=== PATIENT | female | born 1995 | race Two or more races ===

== ENCOUNTER 2023-01-24 00:48 | Emergency (ER) | payer MEDICAID, OTHER ==
[~2023-01-24] VITALS: Ht 160 cm; Wt 117.7 kg
[2023-01-24] MEDS ORDERED: DICYCLOMINE HCL (10MG/ML) 2 ML AMPULE IM ONE (02:00)
[2023-01-24 02:22] LABS: Basophils # (auto) 0.1 10 ^3/uL (0-0.2); Basophils % (auto) 0.9 % (0.0-2.0); Eosinophils # (auto) 0.3 10 ^3/uL (0-0.8); Eosinophils % (auto) 2.6 % (0.0-7.0); Hemoglobin 13.7 g/dL (12.2-16.2); Lymphocytes # (auto) 2.6 10 ^3/uL (0.4-5.4); Lymphocytes % (auto) 20.5 % (10.0-50.0); Mean Corpuscular Hgb Conc. 33.3 g/dL (32.0-36.0); Mean Corpuscular Volume 84.1 fL (80.0-100.0); Monocytes # (auto) 0.6 10 ^3/uL (0-1.3); Monocytes % (auto) 4.7 % (0.0-12.0); Neutrophils # (auto) 9.1 10 ^3/uL (1.6-8.6); Neutrophils % (auto) 71.3 % (37.0-80.0); Nucleated Red Blood Cells % 0.1 %; Red Blood Cells 4.87 10^6/uL (4.0-5.20); Red Cell Distribution Width 13.7 % (11.8-14.3); White Blood Cell 12.7 10^3/uL (4.4-10.8)
[2023-01-24 02:38] LABS: Urine Bacteria NONE SEEN /hpf (None Seen); Urine Blood 3+ /uL (Negative); Urine Clarity Clear (Clear); Urine Color PINK (Yellow); Urine Protein, UAD 1+ (Negative); Urine Specific Gravity 1.025 (1.001-1.035); Urine Urobilinogen Normal (Negative); Urine WBC 22 /hpf (0 - 5); Urine pH 5.5 (5.0-8.0)
[2023-01-24 02:39] LABS: Alanine Aminotransferase 21 U/L (7-40); Albumin 4.5 g/dL (3.2-4.8); Alkaline Phosphatase 151 U/L (46-116); Anion Gap 8 (5-15); Aspartate Aminotransferase 23 U/L (13-40); Bilirubin, Total 0.8 mg/dL (0.2-1.0); Blood Urea Nitrogen 9 mg/dL (9-23); Calcium 9.2 mg/dL (8.7-10.4); Carbon Dioxide 24 mmol/L (20-30); Chloride 106 mmol/L (98-107); Glucose 115 mg/dL (74-106); Lipase 51 U/L (12-53); Magnesium 1.9 mg/dL (1.6-2.6); Potassium 4.1 mmol/L (3.5-5.1); Sodium 138 mmol/L (136-145)
[2023-01-24 02:40] LABS: Total Protein 7.8 g/dL (5.7-8.2)
[2023-01-24 06:02] VITALS: TEMP 97.8
[2023-01-24] MEDS ORDERED: FAMO20TA10 PO (08:31)
[2023-01-24] MEDS ORDERED: MELO-335 PO (08:31)
[2023-01-24] MEDS ORDERED: ZOFR4T PO (08:31)
[2023-01-24 08:32] VITALS: BP 138/76; PULSE 69; RESP 17; O2SAT 96
== END 2023-01-24 08:38 | disposition home or self-care (01) ==
LOC: ER 00:48
DX: K80.50 Calculus of bile duct without cholangitis or cholecystitis without obstruction (principal); R10.2 Pelvic and perineal pain; Z79.899 Other long term (current) drug therapy
CPT/HCPCS: 36415; 76705; 80053; 81001; 81025; 83690; 83735; 84702; 85025; 96372; 99285; J0500

== ENCOUNTER 2023-07-18 20:36 | Inpatient (IN) | payer MEDICAID ==
[~2023-07-18] VITALS: Ht 160 cm; Wt 116.0 kg
[~2023-07-18 20:36] MED LIST: FAMO20TA10 PO; MELO15TA29 PO; ZOFR4T PO
[2023-07-18 22:02] LABS: Urine Bacteria None Seen /hpf (None Seen)
[2023-07-18 22:26] LABS: Urine Blood 1+ /uL (Negative); Urine Clarity Clear (Clear); Urine Color Yellow (Yellow); Urine Mucus FEW (None Seen); Urine Protein, UAD TRACE (Negative); Urine Specific Gravity 1.033 (1.001-1.035); Urine Urobilinogen 12 mg/dL (Negative); Urine WBC 2 /hpf (0 - 5)
[2023-07-18 22:55] LABS: Basophils # (auto) 0.1 10 ^3/uL (0-0.2); Basophils % (auto) 0.6 % (0.0-2.0); Eosinophils # (auto) 0.2 10 ^3/uL (0-0.8); Eosinophils % (auto) 1.6 % (0.0-7.0); Hematocrit 40.6 % (36.0-46.0); Hemoglobin 12.8 g/dL (12.2-16.2); Lymphocytes # (auto) 1.8 10 ^3/uL (0.4-5.4); Lymphocytes % (auto) 16.4 % (10.0-50.0); Mean Corpuscular Hemoglobin 25.9 pg (28.0-32.0); Mean Corpuscular Hgb Conc. 31.5 g/dL (32.0-36.0); Mean Corpuscular Volume 82.1 fL (80.0-100.0); Monocytes # (auto) 0.6 10 ^3/uL (0-1.3); Monocytes % (auto) 5.7 % (0.0-12.0); Neutrophils # (auto) 8.5 10 ^3/uL (1.6-8.6); Neutrophils % (auto) 75.7 % (37.0-80.0); Nucleated Red Blood Cells % 0.1 %; Red Blood Cells 4.94 10^6/uL (4.0-5.20); Red Cell Distribution Width 15.6 % (11.8-14.3); White Blood Cell 11.2 10^3/uL (4.4-10.8)
[2023-07-18 23:15] LABS: Alanine Aminotransferase 110 U/L (7-40); Albumin 4.7 g/dL (3.2-4.8); Alkaline Phosphatase 193 U/L (46-116); Anion Gap 5 (5-15); Aspartate Aminotransferase 227 U/L (13-40); BUN/Creatinine Ratio 13.4 (10.0-20.0); Bilirubin, Total 2.1 mg/dL (0.2-1.0); Blood Urea Nitrogen 9 mg/dL (9-23); Carbon Dioxide 27 mmol/L (20-30); Chloride 105 mmol/L (98-107); Glucose 110 mg/dL (74-106); Lipase 41 U/L (12-53); Potassium 3.6 mmol/L (3.5-5.1); Sodium 137 mmol/L (136-145); Total Protein 8.1 g/dL (5.7-8.2)
[2023-07-19] VITALS (7 sets, daily range): BP systolic 125–131; BP diastolic 77–85; PULSE 66–77; RESP 12–18; TEMP 96.9–98.1; O2SAT 95–100
[2023-07-19] MEDS ORDERED: ONDANSETRON HCL 4 MG/2 ML VIAL IV PRN (03:15)
[2023-07-19] MEDS ORDERED: MORPHINE SULFATE INJ 2 MG/ml SYRG IV PRN (03:15)
[2023-07-19] MEDS: SODIUM CHLORIDE 0.9% 1,000 ML IV SCH (03:26)
[2023-07-19 04:02] LABS: Alanine Aminotransferase 148 U/L (7-40); Albumin 4.5 g/dL (3.2-4.8); Alkaline Phosphatase 197 U/L (46-116); Anion Gap 4 (5-15); Aspartate Aminotransferase 295 U/L (13-40); BUN/Creatinine Ratio 11.7 (10.0-20.0); Blood Urea Nitrogen 7 mg/dL (9-23); Calcium 9.8 mg/dL (8.7-10.4); Carbon Dioxide 26 mmol/L (20-30); Chloride 106 mmol/L (98-107); Glucose 105 mg/dL (74-106); Potassium 3.8 mmol/L (3.5-5.1); Sodium 136 mmol/L (136-145)
[2023-07-19 04:03] LABS: Bilirubin, Total 2.5 mg/dL (0.2-1.0); Total Protein 7.9 g/dL (5.7-8.2)
[2023-07-19 04:09] LABS: Partial Thromboplastin Time 31.6 SEC (24.5-34.5); Prothrombin Time 10.5 sec (9.3-11.8)
[2023-07-19] MEDS ORDERED: GEMF600T PO (10:24)
[2023-07-19] MEDS: D5W/SOD CHLO 0.9% 1,000 ML IV SCH (15:20)
[2023-07-19] MEDS ORDERED: metroNIDAZOLE 500MG/100ML 100 ML IV SCH (22:00)
[2023-07-19] MEDS: metroNIDAZOLE 500MG/100ML 100 ML IV SCH (22:46)
[2023-07-20 01:00] VITALS: BP 127/77; PULSE 71; RESP 18; TEMP 98; O2SAT 94
[2023-07-20 05:00] VITALS: BP 103/60; PULSE 67; RESP 18; TEMP 97.8; O2SAT 98
[2023-07-20 06:39] LABS: Eosinophils # (auto) 0.3 10 ^3/uL (0-0.8); Hemoglobin 12.1 g/dL (12.2-16.2); Neutrophils # (auto) 4.5 10 ^3/uL (1.6-8.6); White Blood Cell 7.2 10^3/uL (4.4-10.8)
[2023-07-20 06:42] LABS: Basophils # (auto) 0.1 10 ^3/uL (0-0.2); Basophils % (auto) 0.7 % (0.0-2.0); Eosinophils % (auto) 3.5 % (0.0-7.0); Hematocrit 36.8 % (36.0-46.0); Lymphocytes % (auto) 27.5 % (10.0-50.0); Mean Corpuscular Volume 81.9 fL (80.0-100.0); Monocytes # (auto) 0.5 10 ^3/uL (0-1.3); Monocytes % (auto) 6.3 % (0.0-12.0); Red Cell Distribution Width 15.9 % (11.8-14.3)
[2023-07-20 08:22] LABS: Chloride 109 mmol/L (98-107)
[2023-07-20 08:25] VITALS: BP 138/97; PULSE 79; RESP 17; TEMP 97.9; O2SAT 99
[2023-07-20 08:25] LABS: Calcium 8.8 mg/dL (8.5-10.1); Carbon Dioxide 27 mmol/L (20-30)
[2023-07-20 08:30] LABS: Alkaline Phosphatase 160 U/L (46-116); Glucose 91 mg/dL (74-106)
[2023-07-20 08:32] LABS: Alanine Aminotransferase 151 U/L (7-40); Albumin 4.2 g/dL (3.2-4.8); Aspartate Aminotransferase 158 U/L (13-40); BUN/Creatinine Ratio 8.1 (10.0-20.0); Bilirubin, Total 0.8 mg/dL (0.2-1.0); Blood Urea Nitrogen 5 mg/dL (9-23); Potassium 3.5 mmol/L (3.5-5.1); Total Protein 6.7 g/dL (5.7-8.2)
[2023-07-20 08:34] LABS: Anion Gap 5 (5-15); Sodium 141 mmol/L (136-145)
[2023-07-20 08:44] LABS: Lipase 35 U/L (12-53)
[2023-07-20] MEDS: ACETAMINOPHEN 325 MG TAB PO PRN (11:14)
[2023-07-20] MEDS: D5W/ SOD CHL 0.9%/KCL 20MEQ 1,000 ML IV SCH (11:18)
[2023-07-20 12:25] VITALS: BP 147/97; PULSE 74; RESP 17; TEMP 97.7; O2SAT 99
[2023-07-20 16:20] VITALS: BP 125/86; PULSE 68; RESP 17; TEMP 97.4; O2SAT 99
[2023-07-20 21:00] VITALS: BP 106/66; PULSE 61; RESP 18; TEMP 97.6; O2SAT 96
[2023-07-21 01:00] VITALS: BP 146/91; PULSE 76; RESP 18; TEMP 98; O2SAT 98
[2023-07-21] MEDS ORDERED: IBUP1TAB5 PO (04:25)
[2023-07-21 05:00] VITALS: BP 105/64; PULSE 63; RESP 18; TEMP 98.1; O2SAT 94
[2023-07-21 06:55] LABS: Basophils # (auto) 0 10 ^3/uL (0-0.2); Basophils % (auto) 0.4 % (0.0-2.0); Eosinophils # (auto) 0.4 10 ^3/uL (0-0.8); Eosinophils % (auto) 4.6 % (0.0-7.0); Hematocrit 39.5 % (36.0-46.0); Hemoglobin 12.5 g/dL (12.2-16.2); Lymphocytes # (auto) 1.9 10 ^3/uL (0.4-5.4); Lymphocytes % (auto) 22.8 % (10.0-50.0); Mean Corpuscular Hemoglobin 27.1 pg (28.0-32.0); Mean Corpuscular Hgb Conc. 31.6 g/dL (32.0-36.0); Mean Corpuscular Volume 85.8 fL (80.0-100.0); Monocytes # (auto) 0.6 10 ^3/uL (0-1.3); Neutrophils # (auto) 5.5 10 ^3/uL (1.6-8.6); Neutrophils % (auto) 65.2 % (37.0-80.0); Nucleated Red Blood Cells % 0.1 %; White Blood Cell 8.4 10^3/uL (4.4-10.8)
[2023-07-21 07:16] LABS: Alanine Aminotransferase 123 U/L (7-40); Albumin 3.7 g/dL (3.2-4.8); Alkaline Phosphatase 136 U/L (46-116); Anion Gap 5 (5-15); Aspartate Aminotransferase 101 U/L (13-40); Calcium 8.8 mg/dL (8.5-10.1); Carbon Dioxide 24 mmol/L (20-30); Chloride 109 mmol/L (98-107); Glucose 94 mg/dL (74-106); Potassium 3.9 mmol/L (3.5-5.1); Sodium 138 mmol/L (136-145)
[2023-07-21 07:17] LABS: Bilirubin, Total 0.7 mg/dL (0.2-1.0); Total Protein 6.1 g/dL (5.7-8.2)
[2023-07-21 07:27] LABS: BUN/Creatinine Ratio 9.3 (10.0-20.0); Blood Urea Nitrogen < 5 mg/dL (9-23)
[2023-07-21 08:30] VITALS: BP 131/85; PULSE 71; RESP 14; RESP 16; TEMP 97.8; O2SAT 97
[2023-07-21 12:00] VITALS: BP 130/90; PULSE 78; RESP 18; TEMP 97.9; O2SAT 98
== END 2023-07-21 12:30 | disposition home or self-care (01) ==
LOC: ER 20:36 → OVERFLOW 07-19 03:09 → EAST 07-19 09:30
PROVIDERS: ADMIT Nurse Practitioner; ATTEND Nurse Practitioner Acute Care
DX: K80.70 Calculus of gallbladder and bile duct without cholecystitis without obstruction (principal); D72.829 Elevated white blood cell count, unspecified; E66.01 Morbid (severe) obesity due to excess calories; E78.5 Hyperlipidemia, unspecified; R74.01 Elevation of levels of liver transaminase levels; R79.89 Other specified abnormal findings of blood chemistry; Z68.42 Body mass index [BMI] 45.0-49.9, adult; Z82.49 Family history of ischemic heart disease and other diseases of the circulatory system; Z83.3 Family history of diabetes mellitus
CPT/HCPCS: 36415; 74181; 76705; 80053; 81001; 83605; 83690; 84702; 85025; 85610; 85730; 96360; G0378; J3490

== ENCOUNTER 2024-12-02 19:32 | Inpatient (IN) | payer MEDICAID ==
[~2024-12-02] VITALS: Ht 160 cm; Wt 109.6 kg
[~2024-12-02 19:32] MED LIST changes: +GEMF600T PO; +IBUP1TAB5 PO
[2024-12-02 19:34] VITALS: BP 134/92; PULSE 82; RESP 19; TEMP 97.7; O2SAT 99
--- NOTE | 2024-12-02 19:50 | ED.PDOC ---
GI ASSESSMENT HPI Comments 29-year-old female who came to ER for abdominal pain. Patient diagnosed with gallstones, but yet has to see a surgeon regarding the seizure. For the past few hours patient has been having right upper quadrant abdominal pain, radiating to her back. Denies any nausea or vomiting. Denies any possibility of . Chief Complaint: Abdominal Pain Time Seen by MD: 19:49 Reviewed Notes: Nurses Notes Allergies: Coded Allergies: NO KNOWN ALLERGIES (Unverified , 07/18/23) Home Meds Active Scripts Meloxicam (Meloxicam) 15 Mg Tab, 1 TAB PO DAILY PRN, #10 TAB Prov:FAREED CORDERO MD 01/24/23 Famotidine (PEPCID TABLET) 20 Mg Tb, 1 TAB PO BID, #28 TAB 3 Refills Prov:FAREED CORDERO MD 01/24/23 Ondansetron Odt 4MG Tab (ZOFRAN PO) 4 Mg Tb, 4 MG PO Q4HP PRN, #20 TAB ODT TAB-DISSOLVE IN MOUTH, THEN SWALLOW Prov:FAREED CORDERO MD 01/24/23 Reported Medications Ibuprofen Micronized (Ibuprofen) 600 Mg Tab, 1 TAB PO Q6HPRN PRN for PAIN SCALE 1 THRU 6 07/21/23 Gemfibrozil (Lopid) 600 Mg Tab, 1 TAB PO BID, #60 TAB 5 Refills 07/19/23 Information Source: Patient Mode of Arrival: Ambulatory Timing: Hours Duration: Intermittent Prehospital treatment: None Quality: Aching Vomitus: Watery Stool: Normal Severity: Moderate Recent: Possible spoiled food Recent Hx of: None Pain Location: RUQ Modifying Factors: Nothing Associated sign and symptoms: Abdominal Pain Past Medical History PAST MEDICAL HISTORY: Gallstones Surgical History: Denies all surgeries OFFICE SERVICES REPRESENTATIVE History: Denies all OFFICE SERVICES REPRESENTATIVE Hx Family History Family History: Reviewed,noncontributory to illness Social History Smoker: Non-Smoker Alcohol: Denies ETOH Use Drugs: Denies Drug Use Lives In: Home Constitutional: denies: chills, diaphoresis, fatigue, fever, malaise, sweats, weakness, others EENTM: denies: blurred vision, double vision, ear bleeding, ear discharge, ear drainage, ear pain, ear ringing, eye pain, eye redness, hearing loss, mouth pain, mouth swelling, nasal discharge, nose bleeding, nose congestion, nose pain, photophobia, tearing, throat pain, throat swelling, voice changes, others Respiratory: denies: cough, hemoptysis, orthopnea, SOB at rest, shortness of breath, SOB with excertion, stridor, wheezing, others Cardiovascular: denies: chest pain, dizzy spells, diaphoresis, Dyspnea on exertion, edema, irregular heart beat, left arm pain, lightheadedness, palpitations, PND, syncope, others Gastrointestinal: reports: abdominal pain; denies: abdomen distended, blood streaked bowels, constipated, diarrhea, dysphagia, difficulty swallowing, hematemesis, melena, nausea, poor appetite, poor fluid intake, rectal bleeding, rectal pain, vomiting, others Genitourinary: denies: abnormal vagina bleeding, burning, dyspareunia, dysuria, flank pain, frequency, hematuria, incontinence, pain, , vagina discharge, urgency, others Neurological: denies: dizziness, fainting, headache, left sided numbness, left sided weakness, numbness, paresthesia, pre-existing deficit, right sided numbness, right sided weakness, seizure, speech problems, tingling, tremors, weakness, others Musculoskeletal: denies: back pain, gout, joint pain, joint swelling, muscle pain, muscle stiffness, neck pain, others Integumetry: denies: bruises, change in color, change in hair/nails, dryness, laceration, lesions, lumps, rash, wounds, others Allergic/Immunocompromised: denies: Difficulty Healing, Frequent Infections, Hives, Itching, others Hematologic/Lymphatic: denies: anemia, blood clots, easy bleeding, easy bruising, swollen glands, others Endocrine: denies: excessive hunger, excessive sweating, excessive thirst, excessive urination, flushing, intolerance to cold, intolerance to heat, unexplained weight gain, unexplained weight loss, others Psychiatric: denies: anxiety, bipolar disorder, depression, hopeless, panic disorder, schizophrenia, sleepless, suicidal, others Physical Exam General Appearance: No Apparent Distress, Normal HEENT: Normal ENT Inspection, Pharynx Normal, TMs Normal Neck: Full Range of Motion, Non-Tender, Normal, Normal Inspection Respiratory: Chest Non-Tender, Lungs Clear, No Accessory Muscle Use, No Respiratory Distress, Normal Breath Sounds Cardiovascular: No Edema, No JVD, No Murmur, No Gallop, Normal Peripheral Pulses, Regular Rate/Rhythm Breast Exam: Deferred Gastrointestinal: No Organomegaly, Non Tender, No Pulsatile Mass, Normal Bowel Sounds, Soft Genitalia: Deferred Pelvic: Deferred Rectal: Deferred Extremities: No calf tenderness, Normal capillary refill, Normal inspection, Normal range of motion, Non-tender, No pedal edema Musculoskeletal : Apperance: Normal Neurologic: Alert, icu registered nurse II-XII nml as Tested, No Motor Deficits, Normal Affect, Normal Mood, No Sensory Deficits Cerebellar Function: Normal Reflexes: Normal Skin: Dry, Normal Color, Warm Lymphatic: No Adenopathy Was a procedure done? Was a procedure done?: No GI differential Dx Differential Diagnosis: Cholecystitis, Constipation, Diverticular disease, Gastritis/PUD, Gastroenteritis, Pancreatitis, UTI X-Ray, Labs, Meds, VS Vital Signs Date Time Temp Pulse Resp B/P (MAP) Pulse Ox O2 Delivery O2 Flow Rate FiO2 12/02/24 19:34 97.7 82 19 134/92 99 97.7 Lab Test 12/02/24 21:30 12/02/24 20:37 12/02/24 19:56 Range/Units Urine Test Negative Negative White Blood Count 14.0 H 4.4-10.8 10^3/uL Red Blood Count 4.82 4.0-5.20 10^6/uL Hemoglobin 13.5 12.2-16.2 g/dL Hematocrit 40.4 36.0-46.0 % Mean Corpuscular Volume 83.8 80.0-100.0 fL Mean Corpuscular Hemoglobin 28.1 28.0-32.0 pg Mean Corpuscular Hemoglobin Concent 33.5 32.0-36.0 g/dL Red Cell Distribution Width 14.3 11.8-14.3 % Platelet Count 394 140-450 10^3/uL Mean Platelet Volume 8.9 6.9-10.8 fL Neutrophils (%) (Auto) 72.0 37.0-80.0 % Lymphocytes (%) (Auto) 19.7 10.0-50.0 % Monocytes (%) (Auto) 6.1 0.0-12.0 % Eosinophils (%) (Auto) 1.7 0.0-7.0 % Basophils (%) (Auto) 0.5 0.0-2.0 % Neutrophils # (Auto) 10.1 H 1.6-8.6 10 ^3/uL Lymphocytes # (Auto) 2.8 0.4-5.4 10 ^3/uL Monocytes # (Auto) 0.9 0-1.3 10 ^3/uL Eosinophils # (Auto) 0.2 0-0.8 10 ^3/uL Basophils # (Auto) 0.1 0-0.2 10 ^3/uL Nucleated Red Blood Cells 0.1 % Sodium Level 143 136-145 mmol/L Potassium Level 4.1 3.5-5.1 mmol/L Chloride Level 107 98-107 mmol/L Carbon Dioxide Level 25 20-31 mmol/L Anion Gap 11 5-15 Blood Urea Nitrogen 9 9-23 mg/dL Creatinine 0.70 0.550-1.02 mg/dL Glomerular Filtration Rate Calc 120 >90 mL/min BUN/Creatinine Ratio 12.9 10.0-20.0 Serum Glucose 93 74-106 mg/dL Calcium Level 9.3 8.7-10.4 mg/dL Total Bilirubin 0.8 0.2-1.0 mg/dL Aspartate Amino Transferase (AST) 16 13-40 U/L Alanine Aminotransferase (ALT) 13 7-40 U/L Alkaline Phosphatase 107 46-116 U/L Total Protein 7.5 5.7-8.2 g/dL Albumin 4.5 3.2-4.8 g/dL Lipase 33 12-53 U/L Time of 1ST Reevaluation: 19:47 Reevaluation 1ST: Unchanged Patient Education/Counseling: Diagnosis, Treatment, Prognosis, Need For Follow Up Family Education/Counseling: No Family Present Comments Patient does have cholelithiasis. Although there is no clear findings for cholecystitis, her wall is slightly thickened and she has leukocytosis of course which this could be due to acute pain and the margination. However to control her symptoms patient will be admitted to the hospital I will treat her empirically with antibiotic to cover for possible early cholecystitis. SEPSIS Sepsis Screen Date sepsis recognized/suspect: Dec 02, 2024 Time Sepsis recognized/suspect: 1933 Recent Procedure: No On Antibiotic Therapy: No Respiratory Rate >20: No Heart Rate >90: No Temp<36 C (96.8 F) or >38.3 C: No SBP <90 or MAP <65 mmHG: No New Acute Mental Status Change: No Is the patient on CPAP, BIPAP,: No Physician Orders Gallbladder (12/02/24 19:46) Vital Signs Date Time Temp Pulse Resp B/P (MAP) Pulse Ox O2 Delivery O2 Flow Rate FiO2 12/02/24 19:34 97.7 82 19 134/92 99 97.7 Laboratory Tests Test 12/02/24 20:37 White Blood Count 14.0 10^3/uL (4.4-10.8) H Departure 1 Departure Time of Disposition: 22:21 Impression: Primary Impression: Cholelithiasis Qualified Codes: K80.20 - Calculus of gallbladder without cholecystitis without obstruction Additional Impression: Biliary colic Disposition: ADMITTED INPATIENT Admit to: Med Surg Condition: Stable Discharged With: Self Critical Care Note Critical Care Time?: No Stability Stability form required: No Heart Score Heart Score: Heart Score Response (Comments) Value History N/A 0 EKG N/A 0 Age N/A 0 Risk Factors N/A 0 Troponin N/A 0 Total 0 I personally scribed for AFSHAN TORRES MD ([email or web address]) on 12/02/24 at 19:50. Electronically submitted by Wilfrido Joshi ([email or web address]). AFSHAN TORRES MD Dec 02, 2024 19:50
[2024-12-02 20:29] LABS: Alanine Aminotransferase 13 U/L (7-40); Albumin 4.5 g/dL (3.2-4.8); Alkaline Phosphatase 107 U/L (46-116); Anion Gap 11 (5-15); BUN/Creatinine Ratio 12.9 (10.0-20.0); Bilirubin, Total 0.8 mg/dL (0.2-1.0); Blood Urea Nitrogen 9 mg/dL (9-23); Calcium 9.3 mg/dL (8.7-10.4); Carbon Dioxide 25 mmol/L (20-31); Chloride 107 mmol/L (98-107); Glucose 93 mg/dL (74-106); Lipase 33 U/L (12-53); Potassium 4.1 mmol/L (3.5-5.1); Sodium 143 mmol/L (136-145); Total Protein 7.5 g/dL (5.7-8.2)
[2024-12-02 20:59] LABS: Hematocrit 40.4 % (36.0-46.0); Hemoglobin 13.5 g/dL (12.2-16.2); Mean Corpuscular Hemoglobin 28.1 pg (28.0-32.0); Mean Corpuscular Volume 83.8 fL (80.0-100.0); Nucleated Red Blood Cells % 0.1 %
--- NOTE | 2024-12-02 21:22 | DVH ---
INDICATION: ruq pain TECHNIQUE: Multiple real-time sonographic images of the abdomen were obtained. COMPARISON: US GALLBLADDER on DOS: 07/18/23, US ABDOMEN LIMITED on DOS: 01/24/23 FINDINGS: Hepatic parenchyma is echogenic suggesting steatosis The liver measures 17.2 cm. No intrah epatic biliary ductal dilatation is noted. The gallbladder wall measures 0.33 cm and is unremarkable. Cholelithiasis. There is sludge also see n in the gallbladder The common duct measures 0.36 cm and is unremarkable. No pericholecystic fluid is noted. Sonographic james's sign is negative The right kidney measures 9.6 cm. No hydronephrosis. The pancreas is not well visualized due to obscuration from bowel gas. The visualized portions of the IVC and aorta are grossly unremarkable. IMPRESSION: 1. Cholelithiasis and sludge noted in the gallbladder. Mildly thickened gallbladder wall. Negative so nographic james's sign. 2. Right kidney measures 9.6 cm in length and there is no hydronephrosis 3. Liver measures 17.2 with parenchymal changes consistent with steatosis.
[2024-12-02] MEDS: SODIUM CHLORIDE 0.9% 1,000 ML IV SCH (23:00)
[2024-12-02 23:01] LABS: Urine Protein, UAD TRACE (Negative)
--- NOTE | 2024-12-02 23:04 | DVHHP2 ---
History of Present Illness History of Present Illness The patient is 29-year-old female with past medical history of cholelithiasis with biliary colic, morbid obesity who came to the hospital with a chief complaint of worsening right upper quadrant abdominal pain, worsened with intake of food, onset few days ago, 09/19, radiating to back, nonresolution with nausea vomiting or diarrhea. Eating food usually worsening of the pain, last for few over, mainly colic in nature, not associated with chest pain, shortness of breath, motor weakness or sensory deficit . The patient denied any other symptoms. As per patient she was hospitalized for same I year ago, was advised for possible surgery, however patient did not appropriately follow up in outpatient setting for surgery, was asymptomatic however started having symptoms past few days prompted visit to the hospital. . Past medical history: Cholelithiasis, biliary colic, morbid obesity Home medication: Zepbound 7.5 mg once weekly injection. Surgery: None Allergy: None Personal history: None PCP: Aurelio Huggins Review of Systems Constitutional: No: Fever, Chills, Sweats, Weakness, Malaise, Other Eyes: No: Pain, Vision change, Conjunctivae inflammation, Eyelid inflammation, Other, Redness ENT: No: Ear pain, Ear discharge, Nose pain, Nose discharge, Nose congestion, Mouth pain, Mouth swelling, Throat pain, Throat swelling, Other Cardiovascular: No: Chest Pain, Palpitations, Orthopnea, Paroxysmal Noc. Dyspnea, Edema, Lt Headedness, Other Gastrointestinal: Abdominal Pain Genitourinary: No Dysuria, No Frequency, No Incontinence, No Hematuria, No Retention, No Other Musculoskeletal: No: other, neck pain, shoulder pain, arm pain, back pain, hand pain, leg pain, foot pain Skin: No: Rash, Lesions, Jaundice, Bruising, Other Neurological: No: Weakness, Numbness, Incoordination, Change in speech, Confusion, Seizures, Other Allergies: Coded Allergies: NO KNOWN ALLERGIES (Unverified , 07/18/23) Medications Current Medications Medications Dose Ordered Sig/Dez Route Start Time Stop Time Status Last Admin Dose Admin Metronidazole 100 ml @ 100 mls/hr Q8HR IV 12/03/24 06:00 Ceftriaxone Sodium 50 ml @ 100 mls/hr DAILY@09 IV 12/03/24 09:00 UNV Pantoprazole Sodium 40 mg DAILY IV 12/03/24 10:00 Sodium Chloride 1,000 ml @ 100 mls/hr Q10H IV 12/02/24 23:00 Exam Vital Signs Vital Signs Date Time Temp Pulse Resp B/P (MAP) Pulse Ox O2 Delivery O2 Flow Rate FiO2 12/02/24 19:34 97.7 82 19 134/92 99 97.7 General Appearance: Alert, Oriented X3, Cooperative, No acute distress HEENT: Atraumatic, PERRLA, EOMI, Mucous membr. moist/pink Respiratory: Clear to auscultation, Normal air movement Cardiovascular: Regular rate, Normal S1, Normal S2 Abdominal: Normal bowel sounds, Soft, Other (Right upper quadrant tenderness on deep palpation, no rigidity, no guarding.) Extremities: No clubbing, No cyanosis, No edema Skin: No breakdown, No significant lesion Neuro: Normal speech, Strength at 5/5 X4 ext, Normal tone, Sensation intact, Cranial nerves 3-12 NL Psych/Mental Status: Mental status NL, Mood NL Labs/Xrays Labs Test 12/02/24 21:30 12/02/24 20:37 12/02/24 19:56 Range/Units Urine Test Negative Negative White Blood Count 14.0 H 4.4-10.8 10^3/uL Red Blood Count 4.82 4.0-5.20 10^6/uL Hemoglobin 13.5 12.2-16.2 g/dL Hematocrit 40.4 36.0-46.0 % Mean Corpuscular Volume 83.8 80.0-100.0 fL Mean Corpuscular Hemoglobin 28.1 28.0-32.0 pg Mean Corpuscular Hemoglobin Concent 33.5 32.0-36.0 g/dL Red Cell Distribution Width 14.3 11.8-14.3 % Platelet Count 394 140-450 10^3/uL Mean Platelet Volume 8.9 6.9-10.8 fL Neutrophils (%) (Auto) 72.0 37.0-80.0 % Lymphocytes (%) (Auto) 19.7 10.0-50.0 % Monocytes (%) (Auto) 6.1 0.0-12.0 % Eosinophils (%) (Auto) 1.7 0.0-7.0 % Basophils (%) (Auto) 0.5 0.0-2.0 % Neutrophils # (Auto) 10.1 H 1.6-8.6 10 ^3/uL Lymphocytes # (Auto) 2.8 0.4-5.4 10 ^3/uL Monocytes # (Auto) 0.9 0-1.3 10 ^3/uL Eosinophils # (Auto) 0.2 0-0.8 10 ^3/uL Basophils # (Auto) 0.1 0-0.2 10 ^3/uL Nucleated Red Blood Cells 0.1 % Sodium Level 143 136-145 mmol/L Potassium Level 4.1 3.5-5.1 mmol/L Chloride Level 107 98-107 mmol/L Carbon Dioxide Level 25 20-31 mmol/L Anion Gap 11 5-15 Blood Urea Nitrogen 9 9-23 mg/dL Creatinine 0.70 0.550-1.02 mg/dL Glomerular Filtration Rate Calc 120 >90 mL/min BUN/Creatinine Ratio 12.9 10.0-20.0 Serum Glucose 93 74-106 mg/dL Calcium Level 9.3 8.7-10.4 mg/dL Total Bilirubin 0.8 0.2-1.0 mg/dL Aspartate Amino Transferase (AST) 16 13-40 U/L Alanine Aminotransferase (ALT) 13 7-40 U/L Alkaline Phosphatase 107 46-116 U/L Total Protein 7.5 5.7-8.2 g/dL Albumin 4.5 3.2-4.8 g/dL Lipase 33 12-53 U/L SEPSIS Sepsis Screen Date sepsis recognized/suspect: Dec 02, 2024 Time Sepsis recognized/suspect: 1933 Recent Procedure: No On Antibiotic Therapy: No Respiratory Rate >20: No Heart Rate >90: No Temp<36 C (96.8 F) or >38.3 C: No SBP <90 or MAP <65 mmHG: No New Acute Mental Status Change: No Is the patient on CPAP, BIPAP,: No Physician Orders Gallbladder (12/02/24 19:46) Sodium Chloride 0.9% (12/02/24 22:30) Admit (12/02/24 22:40) Chest Xray 1 View (12/02/24 22:40) Electrocardigram (12/02/24 22:40) PTPTT (12/02/24 22:40) Urinalysis (12/02/24 22:40) Npo (Nothing By Mouth) Diet (12/03/24 Breakfast) Nm Hida Scan (12/02/24 22:40) * Surgical Consult (12/02/24 ) Metronidazole 500mg/100ml (Flagyl 500mg/ (12/03/24 06:00) Metronidazole 500mg/100ml (Flagyl 500mg/ (12/02/24 22:45) Ceftriaxone 1gm/50ml D5w (Rocephin) (12/03/24 09:00) Pantoprazole (Protonix) (12/03/24 10:00) Sodium Chloride 0.9% (12/02/24 23:00) Lactic Acid W/ Reflex Order (12/02/24 22:53) Complete Blood Count (12/03/24 04:00) Basic Metabolic Panel (12/03/24 04:00) Vital Signs Date Time Temp Pulse Resp B/P (MAP) Pulse Ox O2 Delivery O2 Flow Rate FiO2 12/02/24 19:34 97.7 82 19 134/92 99 97.7 Laboratory Tests Test 12/02/24 20:37 White Blood Count 14.0 10^3/uL (4.4-10.8) H Assessment/Plan Assessment/Plan Symptomatic Cholelithiasis with biliary colic Rule out cholecystitis Sepsis likely due to acute cholecystitis Hepatic steatosis Morbid obesity BMI 42.8 kg/m2 Plan/recommendation -Gallbladder ultrasound on 12/02/2024: Cholelithiasis and sludge noted in the gallbladder. Mildly thickened gallbladder wall -NPO -surgery consultation for symptomatic cholelithiasis, possible acute cholecystitis -pending HIDA scan -IV antibiotic with ceftriaxone metronidazole -check lactic acidosis -maintenance IV fluid with NS 125 mL/hour -the patient is ambulatory -p.r.n. ondansetron for nausea and vomiting if needed Goals of care discussed greater than 24 m, full cor status Plan discussed with Dr. Gutierrez Plan discussed with: Patient, Other My Orders Orders - SAYRA YUN RESIDENT Procedure Category Date Status Time Admit ADMIT 12/02/24 Transmitted 22:40 Chest Xray 1 View XY 12/02/24 Logged 22:40 Electrocardigram EKG 12/02/24 Logged 22:40 PTPTT LAB 12/02/24 In Process 22:40 Urinalysis LAB 12/02/24 Logged 22:40 Npo (Nothing By DIET 12/03/24 Transmitted Mouth) Diet Breakfast Nm Hida Scan NM 12/02/24 Logged 22:40 * Surgical Consult CONS 12/02/24 Transmitted Metronidazole PHA 12/03/24 In Process 500mg/100ml (Flagyl 06:00 Metronidazole PHA 12/02/24 In Process 500mg/100ml (Flagyl 22:45 Ceftriaxone 1gm/50ml PHA 12/03/24 Pending D5w (Rocephin) 09:00 Pantoprazole PHA 12/03/24 In Process (Protonix) 10:00 Sodium Chloride 0.9% PHA 12/02/24 In Process 23:00 Lactic Acid W/ Reflex LAB 12/02/24 Logged Order 22:53 Complete Blood Count LAB 12/03/24 Verified 04:00 Basic Metabolic Panel LAB 12/03/24 Verified 04:00 Date of Service: Dec 02, 2024 Billing Provider: CARIN GUTIERREZ MD Common Visit Codes: [id number] INP/OBS CARE (HIGH) SAYRA YUN RESIDENT Dec 02, 2024 23:04
[2024-12-02 23:11] LABS: INR 0.97 (0.9-1.15); Partial Thromboplastin Time 35.0 SEC (24.5-34.5); Prothrombin Time 10.3 sec (9.3-11.8)
[2024-12-03] MEDS: SODIUM CHLORIDE 0.9% 1,000 ML IV ONE (00:20)
[2024-12-03] MEDS: cefTRIAXone SOD 1,000 MG VL IV ONE (00:26)
--- NOTE | 2024-12-03 00:45 | DVH ---
CHEST RADIOGRAPH Indication: preop Technique: 1 view Comparison: None FINDINGS: Lines and Tubes: None Lungs: No focal consolidation. Pleura: No effusion or pneumothorax. Cardiomediastinal contours: Unremarkable. Other: No acute osseous abnormality. IMPRESSION: 1. No acute cardiopulmonary abnormality.
[2024-12-03] MEDS: fentaNYL CITRATE 100 MCG/2 ML VL IV ONE (03:37)
[2024-12-03 03:57] LABS: Hematocrit 41.3 % (36.0-46.0); Hemoglobin 13.8 g/dL (12.2-16.2); Mean Corpuscular Hemoglobin 28.2 pg (28.0-32.0); Mean Corpuscular Volume 84.6 fL (80.0-100.0); Nucleated Red Blood Cells % 0.1 %
[2024-12-03 04:03] LABS: Potassium 3.8 mmol/L (3.5-5.1); Sodium 141 mmol/L (136-145)
[2024-12-03 04:04] LABS: Anion Gap 10 (5-15); Calcium 8.9 mg/dL (8.7-10.4); Carbon Dioxide 23 mmol/L (20-31)
[2024-12-03 04:05] LABS: Chloride 108 mmol/L (98-107)
[2024-12-03 04:09] LABS: BUN/Creatinine Ratio 10.3 (10.0-20.0); Blood Urea Nitrogen 6 mg/dL (9-23); Glucose 90 mg/dL (74-106)
[2024-12-03] MEDS ORDERED: cefTRIAXone 1GM/50ML D5W 50 ML IV SCH (09:00)
[2024-12-03] MEDS ORDERED: PANTOPRAZOLE 40 MG/10 ML VIAL INJ IV SCH (10:00)
--- NOTE | 2024-12-03 19:57 | DVHDSRES ---
Discharge Summary Date of Admission Resident Creating Document: MICAELA BAILEY RESIDENT Dec 02, 2024 at 22:40 Date of Discharge: Dec 03, 2024 Labs/Diagnostic Data: Laboratory Results Test 12/03/24 03:35 12/02/24 23:28 12/02/24 21:30 12/02/24 19:56 White Blood Count 13.9 10^3/uL (4.4-10.8) Red Blood Count 4.89 10^6/uL (4.0-5.20) Hemoglobin 13.8 g/dL (12.2-16.2) Hematocrit 41.3 % (36.0-46.0) Mean Corpuscular Volume 84.6 fL (80.0-100.0) Mean Corpuscular Hemoglobin 28.2 pg (28.0-32.0) Mean Corpuscular Hemoglobin Concent 33.3 g/dL (32.0-36.0) Red Cell Distribution Width 14.8 % (11.8-14.3) Platelet Count 375 10^3/uL (140-450) Mean Platelet Volume 8.9 fL (6.9-10.8) Neutrophils (%) (Auto) 75.2 % (37.0-80.0) Lymphocytes (%) (Auto) 17.6 % (10.0-50.0) Monocytes (%) (Auto) 5.5 % (0.0-12.0) Eosinophils (%) (Auto) 1.1 % (0.0-7.0) Basophils (%) (Auto) 0.6 % (0.0-2.0) Neutrophils # (Auto) 10.5 10 ^3/uL (1.6-8.6) Lymphocytes # (Auto) 2.4 10 ^3/uL (0.4-5.4) Monocytes # (Auto) 0.8 10 ^3/uL (0-1.3) Eosinophils # (Auto) 0.2 10 ^3/uL (0-0.8) Basophils # (Auto) 0.1 10 ^3/uL (0-0.2) Nucleated Red Blood Cells 0.1 % Sodium Level 141 mmol/L (136-145) Potassium Level 3.8 mmol/L (3.5-5.1) Chloride Level 108 mmol/L (98-107) Carbon Dioxide Level 23 mmol/L (20-31) Anion Gap 10 (5-15) Blood Urea Nitrogen 6 mg/dL (9-23) Creatinine 0.58 mg/dL (0.550-1.02) Glomerular Filtration Rate Calc 126 mL/min (>90) BUN/Creatinine Ratio 10.3 (10.0-20.0) Serum Glucose 90 mg/dL (74-106) Calcium Level 8.9 mg/dL (8.7-10.4) Lactic Acid Level 1.2 mmol/L (0.4-2.0) Urine Color Yellow (Yellow) Urine Clarity Turbid (Clear) Urine pH 6.0 (5.0-9.0) Urine Specific [place] 1.034 (1.001-1.035) Urine Protein Trace (Negative) Urine Ketones Negative (Negative) Urine Blood 1+ /uL (Negative) Urine Nitrite Negative (Negative) Urine Bilirubin Negative (Negative) Urine Urobilinogen Normal mg/dL (Negative) Urine Leukocyte Esterase Trace /uL (Negative) Urine RBC 11 /hpf (0 - 4) Urine Microscopic WBC 6 /HPF (0-5) Urine Squamous Epithelial Cells Few /hpf (<5) Urine Bacteria None seen /hpf (None Seen) Urine Mucus Few (None Seen) Urine Glucose Normal mg/dL (Normal) Urine Test Negative (Negative) Prothrombin Time 10.3 sec (9.3-11.8) Prothrombin Time INR 0.97 (0.9-1.15) Activated Partial Thromboplast Time 35.0 SEC (24.5-34.5) Total Bilirubin 0.8 mg/dL (0.2-1.0) Aspartate Amino Transferase (AST) 16 U/L (13-40) Alanine Aminotransferase (ALT) 13 U/L (7-40) Alkaline Phosphatase 107 U/L (46-116) Total Protein 7.5 g/dL (5.7-8.2) Albumin 4.5 g/dL (3.2-4.8) Lipase 33 U/L (12-53) Other Laboratory Tests 12/03/24 03:35 Brief Hx & Hospital Course: Brief history on admission: Miladis Larios is 29-year-old female with past medical history of cholelithiasis with biliary colic, morbid obesity who came to the hospital with a chief complaint of worsening right upper quadrant abdominal pain, worsened with intake of food, onset few days ago, 09/19, radiating to back, nonresolution with nausea vomiting or diarrhea. Eating food usually worsening of the pain, last for few over, mainly colic in nature, not associated with chest pain, shortness of breath, motor weakness or sensory deficit . The patient denied any other symptoms. As per patient she was hospitalized for same I year ago, was advised for possible surgery, however patient did not appropriately follow up in outpatient setting for surgery, was asymptomatic however started having symptoms past few days prompted visit to the hospital. Hospital course: Her initial labs revealed neutrophilic leukocytosis. US Abdomen revealed cholelithiasis and sludge noted in the gallbladder, mildly thickened gallbladder wall. She was managed with IV fluids, antibiotics, zofran, NPO. HIDA scan ordered & surgery was consulted. Further medical management could not be completed as patient decided to leave AMA. Patient requested to leave AMA, demonstrated decision making capacity. Patient was counseled on risks of leaving AMA and benefits of staying. Patient verbalized understanding of potential risks on several occasions. Despite counseling, patient decided to leave AMA, patient was advised to return to medical facility if symptoms worsen. Conditions treated during hospital stay: Symptomatic Cholelithiasis with biliary colic Rule out cholecystitis Sepsis likely due to acute cholecystitis Hepatic steatosis Morbid obesity BMI 42.8 kg/m2 Condition at Discharge: Undetermined Final Diagnosis/Problems List Symptomatic Cholelithiasis with biliary colic Rule out cholecystitis Sepsis likely due to acute cholecystitis Hepatic steatosis Morbid obesity BMI 42.8 kg/m2 Discharge Disposition: AMA Discharge Instruct/Medications Scheduled Famotidine (Pepcid Tablet), 1 TAB PO BID Gemfibrozil (Lopid), 1 TAB PO BID, (Reported) Scheduled PRN Ibuprofen Micronized (Ibuprofen), 1 TAB PO Q6HPRN PRN for PAIN SCALE 1 THRU 6, (Reported) Meloxicam (Meloxicam), 1 TAB PO DAILY PRN Ondansetron Odt 4MG Tab (Zofran Po), 4 MG PO Q4HP PRN Discharge Statement: "Patient was advised to return to the ER or call 911 if any headaches, dizziness, shortness of breath, chest pain, abdominal pain, bleeding, fevers, or worsening of medical condition. Patient was counseled about treatment plan, medications, possible side effects, patientverbalized understanding. All questions were answered to the best of my ability. This discharge took greater then 30 minutes in planning, reviewing documentation, counseling the patient, and discussing with other team members." ASSESSMENT ASSESSMENT Assessment Date of Service: Dec 03, 2024 Billing Provider: DARNELL NGUYEN MD Common Visit Codes: 26815-KQJ/OBS DISCH DAY >30min MICAELA BAILEY RESIDENT Dec 03, 2024 19:57 DARNELL NGUYEN MD Dec 04, 2024 11:16
== END 2024-12-03 07:42 | disposition left against medical advice (07) | DRG 720 ==
LOC: ER 19:32 → OVERFLOW 22:40
PROVIDERS: ADMIT Student in an Organized Health Care Education/Training Program; ATTEND Internal Medicine
DX: A41.9 Sepsis, unspecified organism (principal); K80.62 Calculus of gallbladder and bile duct with acute cholecystitis without obstruction; K76.0 Fatty (change of) liver, not elsewhere classified; E66.01 Morbid (severe) obesity due to excess calories; Z53.29 Procedure and treatment not carried out because of patient's decision for other reasons; Z68.41 Body mass index [BMI] 40.0-44.9, adult; Z79.1 Long term (current) use of non-steroidal anti-inflammatories (NSAID); Z79.899 Other long term (current) drug therapy
CPT/HCPCS: 36415; 71045; 76705; 80048; 80053; 81001; 81025; 83605; 83690; 85025; 85610; 85730; 96365; G0378; J0696; J3490